=== PATIENT | male | born 1975 | race Caucasian/White ===

== ENCOUNTER 2022-07-15 02:11 | Day surgery (SDC) | payer BC, SELFPAY ==
[2022-07-06 10:43] VITALS: BMI 24.4
--- NOTE | 2022-07-14 20:18 | PM.HPGS ---
History of Present Illness History of Present Illness Consent: Risks, benefits, and alternatives have been discussed and questions answered. Patient agrees to proceed with procedure. Chief complaint: neoplasm screening Narrative: David Zamarripa is a 46 year old male is here for screening colonoscopy.? He also mentions that he has had irritable bowel symptoms for several years.? He would use Imodium from time to time.? Review of Systems Review of Systems: All systems reviewed & are unremarkable except as noted in HPI and below [facility] Surgical History Surgical History S/P LASIK surgery Family History Family History Mother Patient's mother is in good health Father Family history of cardiovascular disease, Onset Age: 69 Social History Social History Smoking status: Never smoker Alcohol intake: current Alcohol use details: Socially Substance use: never Substance use type: does not use Living arrangements: alone Meds Home Medications and Allergies Home Medications Medication Instructions Recorded Confirmed Type No Home Medications 07/06/22 07/06/22 History Allergies Allergy/AdvReac Type Severity Reaction Status Date / Time No Known Allergies Allergy Verified 07/15/22 06:53 Exam Resp: Auscultation: clear to auscultation bilaterally Cardio: Rate: regular rate Rhythm: regular rhythm GI: GI Palp: Yes Soft to palpation and No Tenderness to palpation present (GI) Assessment and Plan Assessment and plan (1) Screening for colon cancer: Code(s): Z12.11 - Encounter for screening for malignant neoplasm of colon Status: Acute Assessment and Plan: Colonoscopy with possible biopsy or polypectomy or cautery or injection of substances.
[2022-07-15 06:54] VITALS: BP 133/83; PULSE 64; RESP 18; TEMP 36.3; O2SAT 99
[2022-07-15] MEDS: LACTATED RINGERS 1,000 ML 150 ML IV CONT (07:04)
--- NOTE | 2022-07-15 07:54 | P.PNAN_ITS ---
Anes - Initial Pre Proc Eval Procedure: Operation Date: 07/15/22 08:00 Proposed Procedures p Screening Colonoscopy - Niraj Ramirez MD Date/Time: 07/15/22 07:54 Surgeon: Niraj Ramirez MD Pre Op Diagnosis: neoplasm screening Patient Data Age: 46 Gender: M Height: 1.93 m Weight: 90.6 kg Last Vital Signs Temp 97.4 F L 07/15/22 06:54 Pulse 64 07/15/22 06:54 Resp 18 07/15/22 06:54 BP 133/83 07/15/22 06:54 Pulse Ox 99 07/15/22 06:54 O2 Del Method Room Air 07/15/22 06:54 Allergies Allergy/AdvReac Type Severity Reaction Status Date / Time No Known Allergies Allergy Verified 07/15/22 06:53 Home Medications Medication Instructions Recorded Confirmed Type No Home Medications 07/06/22 07/06/22 History Patient hx anesthesia problems: none Family hx anesthesia problems: none Results Review: All pre-operative results and documents have been reviewed as part of the pre- operative evaluation. [facility] Surgical History Surgical History S/P LASIK surgery Family History Family History Mother Patient's mother is in good health Father Family history of cardiovascular disease, Onset Age: 69 Social History Social History Smoking status: Never smoker Alcohol intake: current Alcohol use details: Socially Substance use: never Substance use type: does not use Living arrangements: alone Anes - Eval Final PreProcedure Day of Procedure 07/15/22 07:54 Patient weight: normal Heart: regular rate and rhythm Lungs: clear to auscultation Airway: Mallampati scale class II Neurological: alert and oriented Last oral intake: >/= 8 hours ASA classification: I Emergent: no Anesthetic plan: proceed Anesthesia type and monitoring: general GIVS and standard monitoring Results Review: All pre-operative results and documents have been reviewed as part of the pre- operative evaluation. Informed Consent: The patient's anesthetic plan and its attendant risks and benefits were discussed with the patient/family/POA. Questions were solicited and answers provided to the satisfaction of the patient/family/POA.
[2022-07-15 08:18] VITALS: BP 110/74; PULSE 66; RESP 20; O2SAT 98
[2022-07-15 08:28] VITALS: BP 115/77; PULSE 60; RESP 20; O2SAT 98
[2022-07-15 08:38] VITALS: BP 128/83; PULSE 62; RESP 20; O2SAT 99
== END 2022-07-15 08:43 | disposition home or self-care (01) ==
PROVIDERS: PCP Family Medicine; Visit Provider Internal Medicine Gastroenterology
PROC: 0DJD8ZZ Inspection of Lower Intestinal Tract, Via Natural or Artificial Opening Endoscopic (ICD-10-PCS; CPT 45378; principal; 2022-07-15 08:00)
DX: Z12.11 Encounter for screening for malignant neoplasm of colon (principal); K57.30 Diverticulosis of large intestine without perforation or abscess without bleeding
CPT/HCPCS: 45378; J2704; J7120

== ENCOUNTER 2023-10-13 08:27 | Outpatient (CLI) | payer BC, SELFPAY ==
--- NOTE | 2023-10-16 16:45 | WPDHOLTEREM ---
Holter/Event Monitor Holter/Event Monitor Date of procedure: 10/13/23 Holter/Event Procedure: 48 Hr Holter Monitor Indications: Palpitations Conclusion: 1. 48 hour holter monitor on 10/13/23. 2. Underlying rhythm is sinus rhythm. HR range 48-143 bpm; average HR 67 bpm. HR at 48 bpm was at 03:47. HR at 143 bpm was at 18:53. 3. There are 7 premature supraventricular complexes and 1 supraventricular couplet. No supraventricular tachycardia. 4. There are 3,895 premature ventricular complexes, 878 ventricular couplets and 756 ventricular triplets. No ventricular tachycardia. 5. No sinoatrial or atrioventricular blocks. No significant pauses greater than 2 seconds. 6. Patient reports symptoms of rapid heart beat which demonstrate sinus rhythm, HR range 67-102 bpm and in 4 out of 5 times patient had PVC.
== END 2023-10-13 08:28 | disposition home or self-care (01) ==
PROVIDERS: PCP Nurse Practitioner; Visit Provider Nurse Practitioner
DX: R00.2 Palpitations (principal)
CPT/HCPCS: 93225; 93226